=== PATIENT | female | born 1970 | race Caucasian/White ===

== ENCOUNTER 2017-08-20 05:32 | Inpatient (IN) | payer OTHER ==
[2017-08-20] MEDS ORDERED: ACETAMINOPHEN 500 MG TAB PO ONE (05:47)
[2017-08-20] MEDS ORDERED: ceFAZolin 2 GM/SWFI 2 GM/20 ML SYR IVP ONE (05:47)
[2017-08-20] MEDS ORDERED: LR 1,000 ML IV ONE (05:48)
[2017-08-20] MEDS ORDERED: LIDOCAINE 1% 2 ML INJ ID PRN (05:48)
[2017-08-20] MEDS ORDERED: GADOBUTROL 10 ML VIAL IVP ONE (06:08)
[2017-08-20] MEDS ORDERED: BUPIVACAINE 0.25% 30 ML SDV ONE (06:44)
[2017-08-20] MEDS ORDERED: BACITRACIN ZINC 14.2 GM OINTTUBE TP ONE (06:44)
[2017-08-20] MEDS ORDERED: BACITRACIN 50,000 UNITS/10 ML SYR IRR ONE (06:44)
[2017-08-20] MEDS ORDERED: CHLORHEXIDINE GLUC HIBICLENS 118 ML BTL TP ONE (06:45)
[2017-08-20] MEDS ORDERED: THROMBIN (BOVINE) 20,000 UNIT VIAL TP ONE (06:45)
[2017-08-20] MEDS ORDERED: MANNITOL 20% 100 GM/500 ML BAG IV ONE ×2 (06:45→11:14)
[2017-08-20] MEDS ORDERED: POVIDONE-IODINE 30 GM OINTTUBE TP ONE (06:45)
[2017-08-20] MEDS ORDERED: AVITENE POWDER 1 GM JAR TP ONE (06:45)
--- NOTE | 2017-08-20 10:43 | PDANEPAE ---
ANE History of Present Illness 46 yo for crani ANE Past Medical History - Cardiovascular History Hx Hypertension: No Hx Arrhythmias: No Hx Chest Pain: No Hx Coronary Artery / Peripheral Vascular Disease: No Hx CHF / Valvular Disease: No Hx Palpitations: No - Pulmonary History Hx COPD: No Hx Asthma/Reactive Airway Disease: No Hx Recent Upper Respiratory Infection: No Hx Oxygen in Use at Home: No Hx Sleep Apnea: No Sleep Apnea Screening Result - Last Documented: Negative - Neurologic History Hx Cerebrovascular Accident: No Hx Seizures: No Hx Dementia: No Neurologic History Comment: DAILY HEADACHES FOR PAST 6 MONTHS - Endocrine History Hx Diabetes: No Endocrine History Comment: UNDER ACTIVE - Renal History Hx Renal Disorders: No - Liver History Hx Hepatic Disorders: No - Neurological & Psychiatric Hx Hx Neurological and Psychiatric Disorders: No - Cancer History Hx Cancer: No - Congenital Disorder History Hx Congenital Disorders: No - GI History Hx Gastrointestinal Disorders: No - Chronic Pain History Chronic Pain: No - Surgical History Prior Surgeries: LT BUNIONECTOMY. TUBAL LIGATION. ABIOLA BREAST AUGMENTATION. DIAG LAP. OVARIAN CYST. TONSILLECTOMY ANE Review of Systems Review of Systems: - Exercise capacity METS (RN): 4 METS ANE Patient History - Allergies Allergies/Adverse Reactions: gluten Allergy (Verified 08/06/17 14:27) - Home Medications Home medications: home medication list seen and reviewed Home Medications: Thyroid [[place] Thyroid 60 MG (*)] 180 mg PO DAILY10 08/02/17 [Last Taken 04:00] Abobotulinumtoxina [Dysport] 1 each IM .[id number] 08/05/17 [Last Taken 04/30/17] Bimatoprost [Latisse] 3 ml TP HS 08/05/17 [Last Taken 08/13/17] Biote Teststerone Pallet 137.5 1 each SQ Q90D 08/05/17 [Last Taken 05/17/17] Cholecalciferol Vit D3 [Vitamin D3 (*)] 5,000 units PO DAILY 08/05/17 [Last Taken 08/13/17] Herbals/Supplements -Info Only 1 ea PO DAILY 08/05/17 [Last Taken 08/13/17] Multivitamins [Multivitamin (*)] 1 each PO DAILY 08/05/17 [Last Taken 08/13/17] - NPO status NPO Status: no food or drink >8 hours NPO Since - Liquids (Date): 08/19/17 NPO Since - Liquids (Time): 20:30 NPO Since - Solids (Date): 08/19/17 NPO Since - Solids (Time): 19:30 - Anes Hx Anes Hx: no prior problems - Smoking Hx Smoking Status: Never smoked ANE Labs/Vital Signs - Vital Signs Blood Pressure: 114/65 Heart Rate: 93 Respiratory Rate: 16 O2 Sat (%): 93 Height: 5 ft 7 in Weight: 72.575 kg ANE Physical Exam - Airway Neck exam: FROM Mallampati Score: Class 2 Mouth exam: normal dental/mouth exam - Pulmonary Pulmonary: no respiratory distress - Cardiovascular Cardiovascular: regular rate and rhythym - ASA Status ASA Status: II ANE Anesthesia Plan Anesthesia Plan: general endotracheal anesthesia Lines/Monitors: arterial line
--- NOTE | 2017-08-20 11:01 | PDHPUP ---
History & Physical Update H&P update statement: This history and physical update is based on an assessment of the patient which was completed after admission or registration (within 24 hours), but prior to the surgery/procedure. H&P update: no change in patient's condition since H&P completed
[2017-08-20] MEDS ORDERED: PROPOFOL/EMULSION 500 MG/50 ML BOTTLE IV ONE ×2 (11:09→13:29)
[2017-08-20] MEDS ORDERED: REMIFENTANIL HCL 1 MG VIAL ONE ×2 (11:09→13:28)
[2017-08-20] MEDS ORDERED: fentaNYL 100 MCG/2 ML INJ ONE ×2 (11:11)
[2017-08-20] MEDS ORDERED: LIDOCAINE 2% 100 MG/5 ML SYR ONE (11:13)
[2017-08-20] MEDS ORDERED: ROCURONIUM 100 MG/10 ML VIAL ONE (11:13)
[2017-08-20] MEDS ORDERED: MIDAZOLAM 2 MG/2 ML VIAL IVP ONE (11:27)
[2017-08-20] MEDS ORDERED: MIDAZOLAM 2 MG/2 ML VIAL ONE (11:28)
[2017-08-20] MEDS ORDERED: ALBUMIN 5% 250 ML BOTTLE IV ONE (12:35)
[2017-08-20] MEDS ORDERED: ONDANSETRON 4 MG/2 ML VIAL ONE (13:41)
[2017-08-20] MEDS ORDERED: SUGAMMADEX SODIUM 200 MG/2 ML VIAL IVP ONE (13:41)
[2017-08-20] MEDS ORDERED: ONDANSETRON 4 MG/2 ML VIAL IVP PRN (13:42)
[2017-08-20] MEDS ORDERED: fentaNYL 100 MCG/2 ML INJ IVP PRN (13:42)
[2017-08-20] MEDS ORDERED: HYDROmorphONE/DILAUDID 1 MG/ML INJ IVP PRN (13:42)
[2017-08-20] MEDS ORDERED: NALOXONE HCL 0.4 MG/ML INJ IVP PRN ×2 (13:42→14:00)
[2017-08-20] MEDS ORDERED: ENALAPRILAT DIHYDRATE 1.25 MG/ML VIAL IVP PRN (13:42)
[2017-08-20] MEDS ORDERED: LABETALOL HCL 5 MG/ML 20 ML MDV IVP PRN (13:42)
[2017-08-20] MEDS ORDERED: MEPERIDINE 25 MG/ML SYR IVP PRN (14:00)
[2017-08-20] MEDS ORDERED: levETIRAcetam 750 MG in NS 100 ML IV ONE (14:04)
[2017-08-20] MEDS ORDERED: ACETAMINOPHEN 325 MG TAB PO PRN (14:05)
[2017-08-20] MEDS ORDERED: MAGNESIUM HYDROXIDE 30 ML UDCUP PO PRN (14:05)
[2017-08-20] MEDS ORDERED: MAG HYDROX/AL HYDROX/SIMETH 30 ML UDCUP PO PRN (14:05)
[2017-08-20] MEDS ORDERED: LACTULOSE 20 GM/30 ML UDCUP PO PRN (14:05)
[2017-08-20] MEDS ORDERED: BISACODYL 10 MG SUPP PR PRN (14:05)
[2017-08-20] MEDS ORDERED: MEPERIDINE 25 MG/ML SYR ONE (14:08)
--- NOTE | 2017-08-20 14:20 | SOAPPROG ---
SOAP Progress Note Assessment/Plan: POST OP CHECK: Assessment: Doing well status post right frontal crani for tumor resection Plan: CPM in PACU, HAWK to thumbprint suction Give Keppra 750 mg IV x 1 in PACU transfer to ICU per protocol. 08/20/17 14:16 Subjective: awake, alert,comfortable. Denies neuro changes. Objective: Vital Signs Temp Pulse Resp BP Pulse Ox 36.8 C 93 20 123/70 H 100 08/20/17 14:06 08/20/17 10:43 08/20/17 14:11 08/20/17 14:11 08/20/17 14:11 Vitals: BP: 119/69 HR: 82 02:100% face mask Neuro: PERRLA, EOMI follows commands x 4, speech clear ICD10 Worksheet Patient Problems: Problems Problem Status Onset Brain tumor Acute - ICD10 Problem Qualifiers (1) Brain tumor
--- NOTE | 2017-08-20 14:22 | POSTOPPROG ---
Post Op Note Date of Operation: 08/20/17 Surgeon: Davey Garcia Animal Killer: EMELYN Ayala Anesthesiologist: Helena Anesthesia: GET(General Endotracheal) Pre-op Diagnosis: right frontal parasagittal brain tumor Post-op Diagnosis: same Indication: Headaches Procedure: Right frontal craniotomy for tumor resection Findings: tumor Inf/Abcess present in the surg proc area at time of surgery?: No EBL: 50-100 Total fluids administered: 900ml NS Drains: Ang Bob (to thumbprint suction) Specimen(s): tumor
[2017-08-20] MEDS: NS W/ 20 KCl/L 1,000 ML IV SCH (15:51)
[2017-08-20] MEDS: POLYETHYLENE GLYCOL 3350 17 GM PKT PO SCH (17:07)
--- NOTE | 2017-08-20 20:21 | POSTANESTH ---
Post Anesthetic Evaluation Cardiovascular Status: Normal, Stable Respiratory Status: Normal, Stable Level of Consciousness/Mental Status: Can Participate in Eval Pain Control: Adequate, Prn Tx Ordered Nausea/Vomiting Control: Adequate, Prn Tx Ordered Complications Possibly Related to Anesthesia: None Noted
[2017-08-20] MEDS ORDERED: BIMATOPROST TP SCH ×2 (21:00)
[2017-08-20] MEDS: FAMOTIDINE 20 MG TAB PO SCH (21:20)
[2017-08-20] MEDS: SENNOSIDES/DOCUSATE SODIUM TAB PO SCH (21:21)
--- NOTE | 2017-08-20 21:54 | GOP ---
[f rep st] OPERATIVE REPORT DATE OF OPERATION: 08/20/2017 SURGEON: Davey Garcia MD NEUROSURGEON: Davey Garcia MD. SUPERVISOR [employer]LE[employer] PLANT: Omar Sanchez. ANESTHESIA: General endotracheal. PREOPERATIVE DIAGNOSIS: Right frontal extra-axial brain tumor. POSTOPERATIVE DIAGNOSIS: Right frontal extra-axial brain tumor. PROCEDURE PERFORMED: Right frontal craniotomy with the use of computer volumetric stereotactic navigation for resection of intradural extra medullary brain tumor/meningioma. Use of intraoperative microscopy. Dural reconstruction. FINDINGS: ESTIMATED BLOOD LOSS: Trace. INDICATIONS: The patient is a 46-year-old woman with about a 2-1/2 cm brain tumor in the right frontal area. It is parafalcine in nature and consistent with a meningioma. She presents now for craniotomy for tumor resection. After presenting the various options that include surgery, radio surgery, versus observation and serial imaging studies. DESCRIPTION OF PROCEDURE: After informed consent was obtained, the patient was taken to the operating room and placed in the lateral position with the right side down. The [employer] neuronavigational system was connected and verified using computer volumetric stereotactic navigation until location behind the hairline was identified for the hockey-stick style incision. The subcutaneous and intramuscular tissues were infiltrated with local anesthesia, after prepping and draping in the area. Incision was created and the scalp reflected anteriorly and laterally. The [employer] drill system with the match stick fluted bur and footplate system was utilized to turn a bone flap in the standard fashion based on the image guidance. The dura was carefully opened after ultrasound guidance of real-time imaging where the tumor was. The dura was reflected medially based on the superior sagittal sinus. The tumor was identified and after bringing in the microscope, a circumferential dissection around the entire tumor area was carefully performed. It was coagulated and sectioning any arterial or venous feeders or drainers. The tumor was very carefully dissected free of any normal brain tissue and arachnoid and a gross total resection was performed. All the tumor that could be visualized under the microscope was removed off the falx and superior sagittal sinus and this was thoroughly coagulated thereafter. I did not feel it was in the patient's best interest to resect this. The wound was then copiously irrigated and the dura closed in watertight fashion using DuraGen and multiple tack-up sutures. The bone flap was replaced and secured with multiple titanium plates and screws. The skin and galea were reapproximated using interrupted Vicryl sutures followed by Dermabond on the skin. COMPLICATIONS: None. DISPOSITION: The patient was extubated and transferred to the recovery room in stable condition. /[id number]/MODL MTDD
[2017-08-20] MEDS: HYDROCODONE/APAP 10/325 TAB PO PRN (22:23)
[2017-08-21] MEDS: POLYETHYLENE GLYCOL 3350 17 GM PKT PO SCH ×2 (00:03→09:27)
[2017-08-21] MEDS: NS W/ 20 KCl/L 1,000 ML IV SCH (00:54)
[2017-08-21 04:03] LABS: PLATELET COUNT 202 10^3/uL (150-400)
--- NOTE | 2017-08-21 07:44 | SOAPPROG ---
SOAP Progress Note Assessment/Plan: Assessment: POD #1 Doing well status post right frontal crani for tumor resection Plan: CPM in Continue HAWK to thumbprint suction Needs MRI brain w/wo this AM Discussed with Dr. Florian Pt/OT/ST 08/21/17 07:45 Subjective: awake, alert, pain controlled. Reports "a couple" headaches last night similar to her preop headaches. Better now. Denies any focal neuro deficits or changes. Objective: Vital Signs Temp Pulse Resp BP Pulse Ox 36.7 C 71 13 104/55 L 100 08/21/17 04:00 08/21/17 05:49 08/21/17 05:49 08/21/17 05:49 08/21/17 05:49 Laboratory Results 08/21/17 03:50 08/21/17 03:50 08/20/17 08/21/17 08/22/17 05:59 05:59 05:59 Intake Total 3351 Output Total 2480 Balance 871 HAWK 175 ml Incision: dressing dry Neuro: A+0x4 speech clear follows commands 4 ambulatory to BR ICD10 Worksheet Patient Problems: Problems Problem Status Onset Brain tumor Acute - ICD10 Problem Qualifiers (1) Brain tumor
[2017-08-21] MEDS: SENNOSIDES/DOCUSATE SODIUM TAB PO SCH (08:52)
[2017-08-21] MEDS: FAMOTIDINE 20 MG TAB PO SCH (08:53)
[2017-08-21 09:00] VITALS: RESP 20; TEMP 98.2
[2017-08-21] MEDS ORDERED: CHOLECALCIFEROL VIT D3 1,000 UNITS TAB PO SCH (09:00)
[2017-08-21] MEDS ORDERED: levETIRAcetam 500 MG TAB PO SCH (09:00)
[2017-08-21] MEDS ORDERED: MULTIVITAMINS 1 EACH TAB PO SCH (09:00)
[2017-08-21] MEDS ORDERED: GADOBUTROL 10 ML VIAL IVP ONE (09:43)
--- NOTE | 2017-08-21 09:56 | ASMTCASEMG ---
Living Arrangements What is your living Answers: With Spouse arrangement? Who do you live with? Type Of Residence What kind of residence do Answers: House you live in? Discharge Plan Comments Coordination Status Comments Notes: Patient is a 46yo female who was admitted for a right frontal crani for tumor resection. PT/OT/SPL have been ordered. Awaiting eval recommendations to determine d/c plan. CM will follow. Date Signed: 08/21/2017 09:55 AM Electronically Signed By:Shannan Sanchez LCSW
[2017-08-21] MEDS ORDERED: THYROID 60 MG TAB PO SCH (10:00)
[2017-08-21] MEDS: HYDROCODONE/APAP 10/325 TAB PO PRN (10:16)
[2017-08-21 12:30] VITALS: BP 105/47; PULSE 80; O2SAT 97
== END 2017-08-21 13:27 | disposition home or self-care (01) | DRG 27 ==
LOC: F3N 05:32 → F2N 15:16
PROVIDERS: ADMIT Neurological Surgery; ATTEND Neurological Surgery
PROC: 00B00ZZ Excision of Brain, Open Approach (ICD-10-PCS; principal; 2017-08-20 11:30)
DX: D32.0 Benign neoplasm of cerebral meninges (principal)
CPT/HCPCS: 92523-GN; 97161-GP; 97165-GO; A9585; C1713; J0171; J0690; J1953; J2001; J2250; J2405; J2704; J3010; P9041

== ENCOUNTER 2017-08-22 09:47 | Observation (INO) | payer OTHER ==
[2017-08-22] MEDS ORDERED: fentaNYL 100 MCG/2 ML INJ IVP ONE (10:04)
[2017-08-22] MEDS ORDERED: ONDANSETRON 4 MG/2 ML VIAL IVP ONE ×2 (10:04→10:41)
--- NOTE | 2017-08-22 10:12 | EDPHY ---
HPI/HX/ROS/PE/MDM Narrative: CHIEF COMPLAINT: Headache 2 days post craniotomy HPI: The patient is a 46 y/o female arriving with her at the referral of her neurosurgeon complaining of a severe diffuse headache onset early this morning, about [address] Garcia performed a right frontal craniotomy 2 days ago for meningioma resection. The patient was discharged home yesterday feeling well and only using Tylenol for pain. Suddenly around 01:00 this morning, she woke with a severe headache "all over." She has taken multiple doses of oxycodone without improvement and has associated nausea. She denies changes in vision, weakness, paresthesias, difficulty walking, speech difficulty, fever, or other complaints. REVIEW OF SYSTEMS: Aside from elements discussed in the HPI, a comprehensive 10-point review of systems was reviewed and is negative. PMH: 1. Right frontal extra-axial brain tumor/meningioma status post resection via right front craniotomy 08/20/17 2. Tubal ligation 2004 3. Breast implants 1997 4. Endometriosis surgery x2, 1990/1991 5. Bunion surgery 1990 6. Ruptured cyst 1988 7. Tonsillectomy 1978 8. Hypothyroidism Prior medical records reviewed including neurosurgery note 07/30/17 and neurosurgical note 08/20/17. SOCIAL HISTORY: Social alcohol use, never smoker. at bedside. PHYSICAL EXAM: General:Patient is alert, appears in pain with cloth over her eyes. ENT:Eyes are normal to inspection. ENT inspection normal. Neck: Normal inspection. Full range of motion. Respiratory:No respiratory distress. Breath sounds normal bilaterally. Cardiovascular: Regular rate and rhythm. Strong peripheral pulses. Normal cap refill. Abdomen:The abdomen is nontender to palpation. There are no peritoneal signs. Back: Normal to inspection. No tenderness to palpation. Skin: Normal color. No rash. Warm and dry. Extremities: Normal appearance. Full range of motion. Neuro: Oriented x3. Normal motor function. Normal sensory function. ED Course: This is a 46 y/o female 2 days post right frontal craniotomy for meningioma resection who presents with a several-hour history of severe, diffuse, intractable headache that woke her from sleep early this morning. She has associated nausea. Her neuro exam is unremarkable. Concern for intracranial bleed, infection, or other post-surgical complication. Plan for IV, head CT, and symptom management. 4mg IV Zofran and 100mcg IV Fentanyl administered. Additional 4mg IV Zofran administered for continued nausea. 1050: Consulted with Dr. Hammond, neurosurgery. He will speak with Dr. Garcia, patient's original neurosurgeon. 1056: Ilia, neurosurgery PA, at bedside assessing patient. 1103: Consulted with Dr. Garcia and MIRANDA Morillo in the ED. They plan to admit patient and will order brain MRA/MRV and 10mg IV Decadron. - Data Points Imaging Results: Imaging Impressions Head CT 08/22/17 10:16 Impression: Small amount of hemorrhage in the operative bed and increased edema in the contralateral adjacent frontal lobe. Results called to Dr. Styles at 10:55 AM General information for patients regarding this examination can be found at [email or web address]. If you have questions or comments about this report, please contact me at (hospital) or [phone] (cell). Imaging: Discussed imaging studies w/ on call pharmacy technician Radiologist, I viewed and interpreted images myself Medications Given: Discontinued Medications Fentanyl (Sublimaze) 100 mcg IVP EDNOW ONE Stop: 08/22/17 10:05 Last Admin: 08/22/17 10:07 Dose: 100 mcg Ondansetron HCl (Zofran) 4 mg IVP EDNOW ONE Stop: 08/22/17 10:05 Last Admin: 08/22/17 10:06 Dose: 4 mg Ondansetron HCl (Zofran) 4 mg IVP EDNOW ONE Stop: 08/22/17 10:42 Last Admin: 08/22/17 10:45 Dose: 4 mg General Time Seen by Provider: 08/22/17 09:54 Initial Vital Signs: Initial Vital Signs Temperature (C) 36.6 C 08/22/17 09:49 Heart Rate 75 08/22/17 09:49 Respiratory Rate 16 08/22/17 09:49 Blood Pressure 105/57 L 08/22/17 09:49 O2 Sat (%) 98 08/22/17 09:49 O2 Delivery Mode Nasal Cannula O2 (L/minute) 2 Allergies/Adverse Reactions: gluten Allergy (Verified 08/06/17 14:27) Home Medications: Medication Instructions Recorded Thyroid [[place] Thyroid 60 MG (*)] 180 mg PO DAILY10 08/02/17 Abobotulinumtoxina [Dysport] 1 each IM .[id number] 08/05/17 Bimatoprost [Latisse] 3 ml TP HS 08/05/17 Biote Teststerone Pallet 137.5 1 each SQ Q90D 08/05/17 Cholecalciferol Vit D3 [Vitamin D3 5,000 units PO DAILY 08/05/17 (*)] Herbals/Supplements -Info Only 1 ea PO DAILY 08/05/17 Multivitamins [Multivitamin (*)] 1 each PO DAILY 08/05/17 Bimatoprost [Latisse] 3 ml TP HS 08/21/17 Polyethylene Glycol 3350 [Miralax 17 gm PO TID pkt 08/21/17 17 gm (*)] Sennosides/Docusate Sodium 1 - 2 tab PO BID tab 08/21/17 [Senokot-S] levETIRAcetam [Keppra 500 mg (*)] 500 mg PO BID #28 tab 08/21/17 oxyCODONE HCL [Oxycodone HCl] 5 mg PO Q4-6PRN PRN #60 tablet 08/21/17 Departure - Departure Disposition: [facility] Inpatient Acute Clinical Impression: Status post craniotomy Intractable headache Qualifiers: Headache type: unspecified Headache chronicity pattern: acute headache Qualified Code(s): R51 - Headache Condition: Fair Referrals: NONE *PRIMARY CARE P,. [Primary Care Provider] - As per Instructions Report Scribed for: Best Styles Report Scribed by: Deena Hammonds Date of Report: 08/22/17 Time of Report: 10:01 Physician Review and Approval Statement: Portions of this note were transcribed by an ED scribe. I personally performed the history, physical exam, and medical decision making; and confirm the accuracy of the information in the transcribed note.
[2017-08-22] MEDS ORDERED: DEXAMETHASONE 10 MG/ML VIAL IVP ONE (11:07)
[2017-08-22] MEDS ORDERED: DEXAMETHASONE 10 MG/ML VIAL ONE (11:08)
[2017-08-22] MEDS ORDERED: ACETAMINOPHEN 325 MG TAB PO PRN (11:11)
[2017-08-22 11:22] LABS: PLATELET COUNT 215 10^3/uL (150-400)
--- NOTE | 2017-08-22 11:32 | GHP ---
[f rep st] PREOP HISTORY AND PHYSICAL DATE OF ADMISSION: 08/22/2017 CHIEF COMPLAINT: Headache. HISTORY OF PRESENT ILLNESS: Ms. Luo is a 46-year-old female who underwent a frontal craniotomy f or resection of a meningioma on 08/20/2017 at [facility]. She did well postoperative ly and an MRI showed good resection of this lesion. She was doing well until early this morning at a pproximately 2 am. She developed a worsening headache with nausea. She felt that her eyes were sens itive and she described a generalized frontal pressure. She was not having neck stiffness, fevers, c hills, or visual problems. She presented to the [facility] Emergency Department. Sh dahiana will be admitted for further workup of her headache. PAST MEDICAL HISTORY: Hypothyroidism. CURRENT MEDICATIONS: Synthroid. ALLERGIES: Gluten. PAST SURGICAL HISTORY: Craniotomy for resection of meningioma on 08/20/2017. FAMILY HISTORY: This patient has no family history of cranial problems. SOCIAL HISTORY: Patient is and has children. She denies smoking or drug use. She does drin k alcohol socially. REVIEW OF SYSTEMS: Negative. PHYSICAL EXAMINATION: GENERAL: Patient is a 46-year-old female lying in bed, no apparent distress. HEENT: Head, eyes, ears, nose, and throat are negative for drainage. EXTREMITIES: [place] warm and dr y. NEUROLOGIC: Patient is awake, alert, oriented x4. Pupils are equal, round, reactive to light. Extraocular motions are intact. There is no evidence of facial droop. Tongue and uvula are midline. Spinal accessory muscles are intact. Her motor strength is 5/5 in her arms and legs. Her sensatio n is grossly intact to light touch in her arms and legs. Deep tendon reflexes are 1+ out of 4. Her incision is clean, dry, and intact. DIAGNOSTIC STUDIES: A head CT without contrast on 08/22/2017, shows postoperative changes from the r ight-sided craniotomy for resection of a frontal lesion. There is a small amount of blood within the operative bed. There is a small amount of vasogenic edema near where the tumor was. There is also a small amount of vasogenic edema adjacent to the falx. IMPRESSION: This is a 46-year-old female who is postoperative day #2 from a right frontal craniotomy for resection of a meningioma. She is admitted with severe recurrent headache. PLAN: All of the above was discussed in detail with the patient and her . The patient was se en and examined by Dr. Garcia in emergency room 7 and 11:05 a.m. At this point in time, she w ill be admitted to the step-down unit for further observation with q.2 hour neurologic checks. She w ill be given 10 of Decadron IV here in the emergency department followed by 4 mg q.6 hours. We will obtain an MRI and an MRV of the brain to better evaluate for the possible source of her headaches. Arthur erickson call with any neurological changes. /[id number]/MODL
--- NOTE | 2017-08-22 11:46 | ASMTLACE ---
MARC Acuity / Level of Answers: Yes Care: Did the patient have an inpatient admission? # of Emergency department Answers: 1-2 visits in the last 6 months Score: 4 Date Signed: 08/22/2017 11:45 AM Electronically Signed By:Karol Green RN
[2017-08-22] MEDS: DEXAMETHASONE 4 MG TAB PO SCH ×3 (12:11→23:50)
[2017-08-22] MEDS ORDERED: oxyCODONE IR 5 MG TAB PO PRN (14:41)
[2017-08-22] MEDS: levETIRAcetam 500 MG TAB PO SCH (19:38)
[2017-08-22] MEDS ORDERED: BIMATOPROST TP SCH (21:00)
[2017-08-23 03:17] VITALS: O2SAT 97
[2017-08-23] MEDS: DEXAMETHASONE 4 MG TAB PO SCH (06:03)
[2017-08-23 07:51] VITALS: BP 112/68; PULSE 78; RESP 13; TEMP 98.4
[2017-08-23] MEDS: levETIRAcetam 500 MG TAB PO SCH (07:51)
[2017-08-23] MEDS ORDERED: THYROID 60 MG TAB PO SCH ×2 (08:00→10:00)
--- NOTE | 2017-08-23 08:28 | SOAPPROG ---
SOAP Progress Note Assessment/Plan: Assessment: 46 yo female who was readmitted s/p Right frontal crani on 08/20/17 for tumor with ENGLE and nausea Improved today after Decadron Neuro intact, feeling great Plan: DC Home today on decadron taper discussed plan with Dr. Park 08/23/17 08:23 Subjective: awake, alert, denies neuro changs. ENGLE resolved. Feeling "much better." present Objective: Vital Signs Temp Pulse Resp BP Pulse Ox 36.9 C 78 13 112/68 97 08/23/17 07:49 08/23/17 07:49 08/23/17 07:49 08/23/17 07:49 08/23/17 07:49 08/22/17 08/23/17 08/24/17 05:59 05:59 05:59 Intake Total 1450 Balance 1450 NEuro: PERRLA, EOMI no drift, no facial droop ambulatory independantly A+Ox4 speech clear ICD10 Worksheet Patient Problems: Problems Problem Status Onset Intractable headache Acute Status post craniotomy Acute Brain tumor Acute
--- NOTE | 2017-08-23 09:57 | ASDISCHSUM ---
Discharge Information Plan Status: Medically Cleared to Leave:08/22/2017 Discharge Date:08/23/2017 08:32 AM CM D/C Disposition:Home, Routine, Self-Care ADT D/C Disposition:Home, Routine, Self-Care Projected Discharge Date:08/23/2017 12:00 AM Transportation at D/C: Discharge Delay Reason: Follow-Up Date:08/23/2017 12:00 AM Discharge Slot: Final Diagnosis: Placement Information Patient Contact Information Contact Name:CHATO Relationship: Address: Work Phone: City: [facility] Phone: State/Zip Code: Email: Financial Information Financial Class:HMO and PPO Plans Primary Plan Desc:[employer] Primary Plan Number:[id number] Secondary Plan Desc: Secondary Plan Number: Assessment Information LACE LACE Acuity / Level of Answers: Yes Care: Did the patient have an inpatient admission? # of Emergency department Answers: 1-2 visits in the last 6 months Score: 4 Date Signed: 08/22/2017 11:45 AM Electronically Signed By:Karol Green RN Intervention Information
[2017-08-29] MEDS ORDERED: TESTOSTERONE SQ SCH (09:00)
[2017-09-26] MEDS ORDERED: [UNRECOGNIZED DRUG - OTHER] IM SCH (09:00)
== END 2017-08-23 08:32 | disposition home or self-care (01) ==
LOC: F2N 15:27
PROVIDERS: ADMIT Neurological Surgery; ATTEND Neurological Surgery
DX: R51 Headache (principal); R11.0 Nausea; G89.18 Other acute postprocedural pain; E03.9 Hypothyroidism, unspecified; Z98.890 Other specified postprocedural states; Z86.011 Personal history of benign neoplasm of the brain
CPT/HCPCS: 70450; 70544; 70551; G0378; J1100; J2405; J3010

== ENCOUNTER → 2018-02-05 | Outpatient (CLI) | payer OTHER ==
[~2018-02-05] MED LIST: GADOBUTROL 10 ML VIAL IVP ONE
== END ==
LOC: FIMAGING 06:50
PROVIDERS: ATTEND Physician Assistant Surgical
DX: Z09 Encounter for follow-up examination after completed treatment for conditions other than malignant neoplasm (principal); Z86.011 Personal history of benign neoplasm of the brain
CPT/HCPCS: A9585

== ENCOUNTER → 2018-08-20 | Outpatient (CLI) | payer OTHER | LOC: BRMIMAGING 11:48 | PROVIDERS: ATTEND Family Medicine | DX: J20.8 Acute bronchitis due to other specified organisms (principal) | CPT/HCPCS: 71046-PO ==